=== PATIENT | male | born 1980 | race Caucasian/White ===

== ENCOUNTER 2022-06-30 17:56 | Emergency (ER) | payer BC ==
[~2022-06-30] VITALS: Ht 185.4 cm; Wt 93.4 kg
[2022-06-30 18:05] VITALS: BP 147/108
[2022-06-30] MEDS ORDERED: KETOROLAC 60 MG/2 ML VIAL IM ONE (18:15)
[2022-06-30] MEDS ORDERED: CAPS1ADH5 TP (18:48)
[2022-06-30] MEDS ORDERED: NAPR-1704 PO (18:48)
[2022-06-30 19:18] VITALS: BP 131/96
== END 2022-06-30 19:20 | disposition home or self-care (01) ==
LOC: MED 17:56
DX: S16.1XXA Strain of muscle, fascia and tendon at neck level, initial encounter (principal); X58.XXXA Exposure to other specified factors, initial encounter; Y93.89 Activity, other specified; Y92.89 Other specified places as the place of occurrence of the external cause; Y99.8 Other external cause status
CPT/HCPCS: 96372; 99283; J1885